=== PATIENT | female | born 1960 | race Caucasian/White ===

== ENCOUNTER 2018-03-11 08:06 | Day surgery (SDC) | payer OTHER ==
[~2018-03-11] VITALS: Ht 162.6 cm; Wt 68.0 kg
[~2018-03-11 08:06] MED LIST: FOLI1TAB19 PO; GABA400C PO; METF500T PO; SIMV20TA1 PO; SULF500T6 PO
[2018-03-11] MEDS ORDERED: CEFAZOLIN SODIUM 1 GM/D5W PM 50 ML IV SCH (08:50)
[2018-03-11] MEDS ORDERED: INSULIN REGULAR, HUMAN 100 UNIT/ML VIAL SUBQ ONE (09:25)
[2018-03-11] MEDS ORDERED: INSULIN LISPRO 100 UNITS/ML VIAL SUBQ SCH (09:35)
[2018-03-11] MEDS ORDERED: MEX2.5 (10:03)
[2018-03-11] MEDS ORDERED: NEOMYCIN/POLYMYXIN/BACITRACIN OIN 15 GM TUBE TP ONE (10:15)
[2018-03-11] MEDS ORDERED: BUPIVACAINE-MPF 0.25% 30 ML VIAL INJ ONE (10:15)
[2018-03-11] MEDS ORDERED: ePHEDrine 50 MG/ML VIAL ONE (10:26)
[2018-03-11] MEDS ORDERED: PROPOFOL 200 MG/20 ML VIAL IV ONE (10:26)
[2018-03-11] MEDS ORDERED: SEVOFLURANE 250 ML BTL INH ONE (10:26)
[2018-03-11] MEDS ORDERED: fentaNYL 0.05 MG/ML VIAL ONE (10:32)
[2018-03-11] MEDS ORDERED: MIDAZOLAM 2 MG/2 ML VIAL ONE (10:32)
[2018-03-11] MEDS ORDERED: BLOOD GLUCOSE MONITORING 1 DEV DEV FS ONE (10:55)
[2018-03-11] MEDS ORDERED: HYDROmorphone 1 MG/ML AMP IVP PRN ×2 (10:55→11:55)
[2018-03-11] MEDS ORDERED: ONDANSETRON 4 MG/2 ML VIAL IVP PRN (10:55)
[2018-03-11] MEDS ORDERED: ONDANSETRON 4 MG/2 ML VIAL IV PRN (11:55)
[2018-03-11] MEDS ORDERED: ACETAMINOPHEN 325 MG TAB PO PRN (11:55)
[2018-03-11] MEDS ORDERED: MORPHINE SULFATE 4 MG/ML SYR IV PRN (11:55)
[2018-03-11] MEDS ORDERED: HYDROcodone/APAP 5/325 MG 1 TAB TAB PO PRN (11:55)
== END 2018-03-11 12:55 | disposition home or self-care (01) ==
LOC: MMU 08:06 → MDS 08:06
PROVIDERS: ATTEND Surgery
DX: D22.39 Melanocytic nevi of other parts of face (principal); M19.90 Unspecified osteoarthritis, unspecified site; E11.9 Type 2 diabetes mellitus without complications; Z79.84 Long term (current) use of oral hypoglycemic drugs; Z79.899 Other long term (current) drug therapy; Z88.1 Allergy status to other antibiotic agents; Z90.710 Acquired absence of both cervix and uterus; Z98.890 Other specified postprocedural states
CPT/HCPCS: 11441; 11442; 71045; 82948; 88305; 93005; J0690; J2250; J2704; J3010; J3490; J7030